=== PATIENT | male | born 1955 | race Hispanic/Latino ===

== ENCOUNTER 2020-04-07 21:06 | Inpatient (IN) | payer OTHER, MEDICARE ==
[~2020-04-07] VITALS: Ht 182.9 cm; Wt 102.1 kg
[2020-04-07 22:25] LABS: BASOPHILS % (AUTO) 0.2 % (0.0-5.0); EOSINOPHILS % (AUTO) 0.1 % (0.0-8.0); HEMATOCRIT 36.2 % (42-54); LYMPHOCYTES % (AUTO) 8.5 % (21.0-51.0); MEAN CORPUSCULAR HEMOGLOBIN 29.1 pg (27.0-33.0); MEAN CORPUSCULAR HGB CONC 32.3 g/dL (32.0-36.0); MONOCYTES % (AUTO) 6.9 % (3.0-13.0); NEUTROPHILS % (AUTO) 83.5 % (40.0-77.0); PLATELET COUNT (AUTO) 473 K/uL (130-400); RED BLOOD CELL COUNT(AUTO) 4.02 MIL/uL (4.50-6.20); RED CELL DISTRIBUTION WIDTH 13.1 % (11.0-15.5); WHITE BLOOD COUNT (AUTO) 16.6 K/uL (4.8-10.8)
[2020-04-07 22:36] LABS: CREATININE 1.3 mg/dL (0.5-1.5); POTASSIUM 4.7 mmol/L (3.5-5.1)
[2020-04-07 22:40] LABS: ALBUMIN 2.7 g/dL (3.5-5.0); BILIRUBIN,TOTAL 0.6 mg/dL (0.2-1.0); TOTAL PROTEIN, SERUM 8.7 g/dL (6.0-8.3)
[2020-04-07] MEDS ORDERED: ZOSYN 3.375GM+NS 50ML 50 ML IV ONE (23:36)
[2020-04-07] MEDS ORDERED: VANCOMYCIN 1GM+NS 250ML 250 ML IV ONE (23:36)
[2020-04-07] MEDS ORDERED: SODIUM CHLORIDE 0.9% 1000ML 1,000 ML IV ONE (23:37)
[2020-04-07] MEDS ORDERED: ACETAMINOPHEN 325 MG TAB ONE (23:37)
[2020-04-08] MEDS ORDERED: ONDANSETRON HCL 4 MG/2 ML VIAL IV PRN (02:30)
[2020-04-08] MEDS ORDERED: DEXTROSE 50%-WATER 50 ML DISP.SYRIN IV PRN (02:45)
[2020-04-08] MEDS: SODIUM CHLORIDE 0.9% 1000ML 1,000 ML IV SCH ×2 (02:45→22:45)
[2020-04-08] MEDS ORDERED: VANCOMYCIN PROTOCOL PER PHARMACY IV SCH (02:45)
[2020-04-08] MEDS ORDERED: GLUCAGON 1MG KIT 1 MG ML IM PRN (02:45)
[2020-04-08] MEDS: ZOSYN 3.375GM+NS 50ML 50 ML IV SCH ×3 (05:00→22:40)
[2020-04-08] MEDS ORDERED: VANCOMYCIN 2 GM in SODIUM CHLORIDE 0.9% 500ML 500 ML IV SCH (06:30)
[2020-04-08 07:08] LABS: BASOPHILS % (AUTO) 0.3 % (0.0-5.0); EOSINOPHILS % (AUTO) 0.4 % (0.0-8.0); HEMATOCRIT 35.5 % (42-54); LYMPHOCYTES % (AUTO) 11.4 % (21.0-51.0); MEAN CORPUSCULAR HEMOGLOBIN 28.9 pg (27.0-33.0); MEAN CORPUSCULAR HGB CONC 32.1 g/dL (32.0-36.0); MEAN CORPUSCULAR VOLUME 89.9 fL (79-99); MONOCYTES % (AUTO) 7.1 % (3.0-13.0); PLATELET COUNT (AUTO) 435 K/uL (130-400); RED BLOOD CELL COUNT(AUTO) 3.95 MIL/uL (4.50-6.20); RED CELL DISTRIBUTION WIDTH 13.2 % (11.0-15.5); WHITE BLOOD COUNT (AUTO) 13.7 K/uL (4.8-10.8)
[2020-04-08] MEDS ORDERED: ZOSYN 3.375GM+NS 50ML 50 ML IV ONE (07:20)
[2020-04-08] MEDS ORDERED: SODIUM CHLORIDE 0.9% 1000ML 1,000 ML IV ONE (07:20)
[2020-04-08 07:24] LABS: INR 1.08 (0.85-1.15); PARTIAL THROMBOPLASTIN TIME 32.7 SEC (26.3-35.5); PROTHROMBIN TIME 11.6 SEC (9.6-11.6)
[2020-04-08 07:26] LABS: ALBUMIN 2.5 g/dL (3.5-5.0); BILIRUBIN,TOTAL 0.6 mg/dL (0.2-1.0); CREATININE 1.4 mg/dL (0.5-1.5); POTASSIUM 4.4 mmol/L (3.5-5.1); TOTAL PROTEIN, SERUM 8.3 g/dL (6.0-8.3)
[2020-04-08] MEDS: INSULIN HUMULIN R 100 UNIT/ML 3ML SQ SCH ×4 (07:30→21:38)
[2020-04-08 07:31] LABS: HEMOGLOBIN A1C 11.9 % (4.0-6.0)
[2020-04-08] MEDS: HEPARIN SODIUM 5000UNIT/ML 1ML VIAL SQ SCH ×2 (09:00→21:35)
--- NOTE | 2020-04-08 09:00 | NUR ---
PER DR JOSE CONSULT DR LOZANO (GENERAL SURGEON) PENDING CALL BACK
[2020-04-08 09:48] VITALS: BP 160/81
[2020-04-08] MEDS ORDERED: LISI-613 PO (10:09)
[2020-04-08] MEDS ORDERED: METF-446 PO (10:09)
[2020-04-08] MEDS ORDERED: ATOR40TA69 PO (10:09)
[2020-04-08] MEDS: FAMOTIDINE/PF 20 MG/2 ML VIAL IV SCH ×2 (10:49→21:36)
--- NOTE | 2020-04-08 13:00 | NUR ---
DR ADAMS SPOKE WITH PT REGARDING ANTIBIOTICS AND POSSIBLE SURGERY NEEDED TO AMPUTATE LEFT FOOT. PT REFUSED ANY SURGERY FOR AMPUTATION AND STATED CAME FOR ANTIBIOTIC TREATMENT.
[2020-04-08] MEDS ORDERED: COMPOUND IV REFRIGERATED 1 EACH IVSOLN MISC PRN (13:30)
--- NOTE | 2020-04-08 13:40 | NUR ---
SPOKE WITH DR LOZANO. INFORMED HER OF PT REFUSAL TO HAVE ANY AMPUTATION DONE RECOMMENDED BY DR JOSE.
[2020-04-08 13:45] VITALS: BP 161/86
--- NOTE | 2020-04-08 13:52 | NUR ---
PT BLOOD SUGAR IS 240. INFORMED DR HARVEY, PER MD GAVE 3 UNITS INSTEAD OF 4 UNITS OF INSULIN-R AND 12 UNITS OF LANTUS.
[2020-04-08] MEDS: VANCOMYCIN 750MG + NS 250 ML IV SCH ×2 (14:08)
[2020-04-08] MEDS ORDERED: INSULIN GLARGINE 100 UNITS/ML 10 ML VIAL SQ ONE (14:15)
--- NOTE | 2020-04-08 14:41 | NUR ---
NUTRITION EDUCATION Pt with Contact Isolation, Diabetes Nutrition Education - Guatemalan Translation placed in Pt chart. Pt pending procedure as per EMR. RD to follow up. Addendum: 04/08/20 at [address] Amended: Links added.
--- NOTE | 2020-04-08 14:47 | NUR ---
DC PLAN VISITED WITH PATIENT. PATIENT LIVES WITH SON. SEMI INDEPENDENT ABLE TO PERFORM MOST ADL'S. PATIENT HAS PROVIDER 4 HRS. WALKER AND WHEEL CHAIR AVAILABLE. FEELS SAFE TO RETURN HOME. . Addendum: 04/08/20 at 1449 by MATA PHELPS RN CM Amended: Links added.
--- NOTE | 2020-04-08 14:49 | NUR ---
RD NOTIFICATION Pt admitted with L-Foot Necrotic wound, Cellulitis w/Osteomyelitis. Pt NPO at time of screen. Elevated BG (295), A1C (11.9). Pt with increased Protein needs. Nutrition Education placed in Pt chart d/t isolation protocol. Rec adv diet as tolerated to 75gm CCD when medically feasible Once diet advanced, Rec Alon BID, 500mg Vit C (BID), 220mg ZnSO4 (QD) Once diet advanced, Rec 60mL ProMod QD RD to continue to monitor. Please notify as additional nutrition concerns arise. Thank you. Addendum: 04/08/20 at [address] RD Amended: Links added.
[2020-04-08 19:50] VITALS: BP 136/65
[2020-04-08] MEDS ORDERED: LISINOPRIL 20 MG TABLET PO SCH (21:00)
[2020-04-08] MEDS: ATORVASTATIN CALCIUM 40 MG TABLET PO SCH (21:37)
[2020-04-08 23:15] VITALS: BP 156/64
[2020-04-09] MEDS: VANCOMYCIN 750MG + NS 250 ML IV SCH ×4 (01:20→13:26)
[2020-04-09 04:00] VITALS: BP 136/65
[2020-04-09] MEDS: ZOSYN 3.375GM+NS 50ML 50 ML IV SCH ×3 (05:10→20:51)
[2020-04-09 05:41] LABS: BASOPHILS % (AUTO) 0.3 % (0.0-5.0); EOSINOPHILS % (AUTO) 0.4 % (0.0-8.0); HEMATOCRIT 32.4 % (42-54); LYMPHOCYTES % (AUTO) 14.1 % (21.0-51.0); MEAN CORPUSCULAR HEMOGLOBIN 29.2 pg (27.0-33.0); MEAN CORPUSCULAR HGB CONC 32.1 g/dL (32.0-36.0); MONOCYTES % (AUTO) 7.6 % (3.0-13.0); NEUTROPHILS % (AUTO) 76.9 % (40.0-77.0); PLATELET COUNT (AUTO) 422 K/uL (130-400); RED BLOOD CELL COUNT(AUTO) 3.56 MIL/uL (4.50-6.20); RED CELL DISTRIBUTION WIDTH 13.1 % (11.0-15.5); WHITE BLOOD COUNT (AUTO) 11.5 K/uL (4.8-10.8)
[2020-04-09 05:56] LABS: CREATININE 1.2 mg/dL (0.5-1.5); MAGNESIUM 1.8 mg/dL (1.80-2.40); POTASSIUM 4.2 mmol/L (3.5-5.1)
[2020-04-09] MEDS: INSULIN HUMULIN R 100 UNIT/ML 3ML SQ SCH ×4 (06:39→20:53)
[2020-04-09 09:28] VITALS: BP 169/72
[2020-04-09] MEDS: FAMOTIDINE/PF 20 MG/2 ML VIAL IV SCH ×2 (10:13→20:51)
[2020-04-09] MEDS: LISINOPRIL 20 MG TABLET PO SCH (10:13)
[2020-04-09] MEDS: HEPARIN SODIUM 5000UNIT/ML 1ML VIAL SQ SCH ×2 (10:18→20:52)
[2020-04-09] MEDS: INSULIN GLARGINE 100 UNITS/ML 10 ML VIAL SQ SCH (10:19)
--- NOTE | 2020-04-09 11:44 | NUR ---
CONVERSATION WITH RUPAL MOCK "Patient wants to be discharged on Saturday AM 04/11 to follow up at [facility] with preferred MD Dr. Mahan.No objection to this plan. To facilitate care, please ensure that patient is provided with a disc of imaging done on this admsision and that ZENA for records are in chart and patient carries a copy." HAD PATIENT SIGN TWO ROIS- ONE FOR HIMESLEF, FOR THE DISC, ONE FOR [facility] FOR HIS RECORDS, WILL ADVISED HE CARRIES A COPY OF THE ZENA FOR RECODS AT DISCHARGE. BOTH WILL NEED TO BE FAXED TO [facility] [place] Saturday, TO PREPARE DISC FOR SATURDAY Addendum: 04/09/20 at 1201 by LAUREN MAN RN Amended: Links added.
--- NOTE | 2020-04-09 14:16 | NUR ---
DISCUSSED PLAN FOR DC W PRIMARY RN NO FURTHER NEED FOR CM SERVICES FOR THIS PT
--- NOTE | 2020-04-09 14:18 | NUR ---
DISCUSSED DC PLAN W PRIMARY RN, NO FURTHER NEED FOR CM SERVICES.
[2020-04-09 16:00] VITALS: BP 147/76
[2020-04-09 17:20] VITALS: BP 147/78
--- NOTE | 2020-04-09 18:00 | NUR ---
PT CONTINUES TO REFUSE SX. PT REFUSED ASSISTANCE WITH TRANSPORTATION TO [facility] UPON D/C, STATED WOULD SIGN AMA IF HE HAS TO ON SATURDAY. DR JOSE AND DR Barnes MADE AWARE. PT SIGNED REFUSAL FORM, PLACED IN CHART.
[2020-04-09] MEDS: ATORVASTATIN CALCIUM 40 MG TABLET PO SCH (20:50)
[2020-04-09 21:04] VITALS: BP 160/84
[2020-04-10 00:09] VITALS: BP 154/73
[2020-04-10] MEDS: VANCOMYCIN 750MG + NS 250 ML IV SCH ×2 (01:13)
[2020-04-10 04:54] VITALS: BP 146/75
[2020-04-10] MEDS: ZOSYN 3.375GM+NS 50ML 50 ML IV SCH ×3 (04:55→20:39)
[2020-04-10 05:20] LABS: BASOPHILS % (AUTO) 0.3 % (0.0-5.0); EOSINOPHILS % (AUTO) 0.3 % (0.0-8.0); HEMATOCRIT 31.3 % (42-54); MEAN CORPUSCULAR HEMOGLOBIN 29.1 pg (27.0-33.0); MEAN CORPUSCULAR HGB CONC 32.6 g/dL (32.0-36.0); MEAN CORPUSCULAR VOLUME 89.2 fL (79-99); MONOCYTES % (AUTO) 6.9 % (3.0-13.0); NEUTROPHILS % (AUTO) 75.8 % (40.0-77.0); PLATELET COUNT (AUTO) 433 K/uL (130-400); RED BLOOD CELL COUNT(AUTO) 3.51 MIL/uL (4.50-6.20); RED CELL DISTRIBUTION WIDTH 12.9 % (11.0-15.5); WHITE BLOOD COUNT (AUTO) 11.7 K/uL (4.8-10.8)
[2020-04-10 05:29] LABS: CREATININE 1.1 mg/dL (0.5-1.5); POTASSIUM 3.7 mmol/L (3.5-5.1)
[2020-04-10] MEDS: INSULIN HUMULIN R 100 UNIT/ML 3ML SQ SCH ×4 (05:29→20:52)
--- NOTE | 2020-04-10 06:11 | NUR ---
PATIENT UPDATE Slept better overnight compared with the previous night, no complaints of pain. Afebrile, continues on the same antibiotics. Continues to refuse to the plan of care set for him with this hospitalization.
[2020-04-10 09:10] VITALS: BP 163/95
[2020-04-10] MEDS: FAMOTIDINE/PF 20 MG/2 ML VIAL IV SCH ×2 (09:39→20:40)
[2020-04-10] MEDS: LISINOPRIL 20 MG TABLET PO SCH (09:39)
[2020-04-10] MEDS: VANCOMYCIN 1GM+NS 250ML 250 ML IV SCH ×2 (09:40→20:40)
[2020-04-10] MEDS: INSULIN GLARGINE 100 UNITS/ML 10 ML VIAL SQ SCH (09:50)
--- NOTE | 2020-04-10 11:48 | NUR ---
Initial physical assessment from admission on 04/08 incorrectly states rt 4th and 5th toe amputation. Correct documentation should read: rt 4th toe only. Addendum: 04/10/20 at 1150 by ELDER MILLER RN RN Amended: Links added.
[2020-04-10 11:49] VITALS: BP 155/78
[2020-04-10] MEDS: HEPARIN SODIUM 5000UNIT/ML 1ML VIAL SQ SCH ×2 (13:03→20:52)
[2020-04-10 16:15] VITALS: BP 154/78
[2020-04-10] MEDS: HYDROCODONE/ACETAMINOPHEN 5/325 MG TAB PO PRN (18:07)
[2020-04-10] MEDS: ATORVASTATIN CALCIUM 40 MG TABLET PO SCH (20:40)
[2020-04-10 21:58] VITALS: BP 152/74
[2020-04-11 00:28] VITALS: BP_SYST 80
[2020-04-11] MEDS: HYDROCODONE/ACETAMINOPHEN 5/325 MG TAB PO PRN ×2 (01:11→08:45)
[2020-04-11] MEDS: ZOSYN 3.375GM+NS 50ML 50 ML IV SCH (04:52)
[2020-04-11 05:24] VITALS: BP 132/71
[2020-04-11] MEDS: INSULIN HUMULIN R 100 UNIT/ML 3ML SQ SCH (05:30)
[2020-04-11 05:33] LABS: BASOPHILS % (AUTO) 0.3 % (0.0-5.0); EOSINOPHILS % (AUTO) 0.3 % (0.0-8.0); HEMATOCRIT 32.2 % (42-54); LYMPHOCYTES % (AUTO) 15.7 % (21.0-51.0); MEAN CORPUSCULAR VOLUME 90.7 fL (79-99); MONOCYTES % (AUTO) 7.2 % (3.0-13.0); NEUTROPHILS % (AUTO) 75.8 % (40.0-77.0); PLATELET COUNT (AUTO) 436 K/uL (130-400); RED BLOOD CELL COUNT(AUTO) 3.55 MIL/uL (4.50-6.20); RED CELL DISTRIBUTION WIDTH 12.9 % (11.0-15.5); WHITE BLOOD COUNT (AUTO) 11.7 K/uL (4.8-10.8)
[2020-04-11 06:12] LABS: CREATININE 1.1 mg/dL (0.5-1.5); POTASSIUM 3.8 mmol/L (3.5-5.1)
[2020-04-11 07:30] VITALS: BP 166/81
[2020-04-11] MEDS: LISINOPRIL 20 MG TABLET PO SCH (07:55)
[2020-04-11] MEDS: FAMOTIDINE/PF 20 MG/2 ML VIAL IV SCH (07:55)
[2020-04-11] MEDS: VANCOMYCIN 1GM+NS 250ML 250 ML IV SCH (07:55)
[2020-04-11] MEDS: INSULIN GLARGINE 100 UNITS/ML 10 ML VIAL SQ SCH (08:06)
[2020-04-11] MEDS: HEPARIN SODIUM 5000UNIT/ML 1ML VIAL SQ SCH (08:07)
--- NOTE | 2020-04-11 10:32 | NUR ---
AMA/DISCHARGE SHAHBAZ ROJAS CAVITY PUMP OPERATOR AT BEDSIDE FOR DISCUSSION WITH PATIENT. ACCORDING TO PATIENT, HE DOES NOT WANT ANY SURGICAL INTERVENTION FOR HIS LEFT FOOT. HE STATES DR HOLLAND IN [facility] HAS "ALL THE MACHINES NEEDED TO FIX MY FOOT" HE STATES HE ALREADY HAS IT SET UP AT [facility] AND HAS A PLAN. SHAHBAZ CHRONOGRAPH OPERATOR OFFERED TO SET UP TRANSFER TO [facility] TO WHICH PT STATED "I HAVE MY CAR HERE I DONT WANT TO LEAVE IT." SHAHBAZ ASKED PT "SO THEN YOU ARE OKAY WITH ;LEAVING AGAINST MEDICAL ADVICE?" TO WHICH PT SAID YES. EXTENSIVE CONVERSATION ON TOPIC OF INFECTION, RISKS AND CURRENT CONDITION DISCUSSED WITH PATIENT. DESPITE THIS CONVO- PT STATES HE WILL BE LEAVING AMA AND GOING STRAIGHT TO [facility].
--- NOTE | 2020-04-11 12:05 | NUR ---
EDUCATION/WOUND DRESSING PICTURES TAKEN OF LEFT NECROTIC TOE, PT EDUCATED ON RISKS ONCE AGAIN. WOUND DRESSING DONE. CLEANED WITH NS, COVERED WITH DRY GAUZE (PER PT REQUEST,DID NOT WANT BETADINE) AND TAPE AND TANNER WRAP.
== END 2020-04-11 11:59 | disposition left against medical advice (07) | DRG 871 ==
LOC: EDH 21:06 → EDHIP 04-08 02:28 → 3DH 04-08 08:01
PROVIDERS: ADMIT Internal Medicine; ATTEND Internal Medicine
DX: A41.9 Sepsis, unspecified organism (principal); M72.6 Necrotizing fasciitis; A48.0 Gas gangrene; L03.116 Cellulitis of left lower limb; E11.52 Type 2 diabetes mellitus with diabetic peripheral angiopathy with gangrene; M86.8X7 Other osteomyelitis, ankle and foot; L02.611 Cutaneous abscess of right foot; L02.612 Cutaneous abscess of left foot; L03.115 Cellulitis of right lower limb; E11.621 Type 2 diabetes mellitus with foot ulcer; E78.5 Hyperlipidemia, unspecified; N19 Unspecified kidney failure; L97.519 Non-pressure chronic ulcer of other part of right foot with unspecified severity; L97.529 Non-pressure chronic ulcer of other part of left foot with unspecified severity; E11.42 Type 2 diabetes mellitus with diabetic polyneuropathy; E11.69 Type 2 diabetes mellitus with other specified complication; Z53.20 Procedure and treatment not carried out because of patient's decision for unspecified reasons; E66.9 Obesity, unspecified; Z68.30 Body mass index [BMI] 30.0-30.9, adult; Z91.19 Patient's noncompliance with other medical treatment and regimen; Z89.421 Acquired absence of other right toe(s); Z83.3 Family history of diabetes mellitus
CPT/HCPCS: 36415; 73630; 73718; 80048; 80053; 80202; 82948; 83036; 83605; 83735; 84145; 85025; 85610; 85651; 85730; 86140; 87040; 93925; 93970; G0378; J1644; J1815; J2543; J3370; J3490; J7030; J7040; J7050

== ENCOUNTER → 2020-07-15 | Outpatient (CLI) | payer OTHER, MEDICARE ==
[~2020-07-15] MED LIST: ATOR40TA69 PO; LISI-613 PO; METF-446 PO
== END | disposition home or self-care (01) ==
LOC: SHCH 14:42
PROVIDERS: ATTEND Internal Medicine Cardiovascular Disease
DX: I87.2 Venous insufficiency (chronic) (peripheral) (principal); I73.9 Peripheral vascular disease, unspecified
CPT/HCPCS: 93971